=== PATIENT | male | born 1960 | race Caucasian/White ===

== ENCOUNTER 2025-10-23 12:46 | Outpatient (CLI) | payer BC, MEDICARE ==
[2025-10-23 14:37] LABS: #Basophils 0.06 10x3/uL (0.0-0.2); #Eosinophils 0.21 10x3/uL (0.0-0.7); #Monocytes 0.69 10x3/uL (0.11-0.59); #Neutrophils 6.24 10x3/uL (1.40-6.50); %Basophils 0.7 % (0.0-1.0); %Eosinophils 2.4 % (0.0-10.0); %Lymphocytes 16.0 % (21.0-51.0); %Monocytes 8.0 % (0.0-10.0); %Neutrophils 72.6 % (42.0-75.0); Hematocrit 53.6 % (42.0-52.0); Hemoglobin 16.8 g/dL (14.0-18.0); Mean Corpuscular Hemoglobin 25.5 pg (27.0-31.0); Mean Corpuscular Volume 81.5 fL (78.0-98.0); Platelet Count 261 10x3/uL (130-400); Red Blood Cell (RBC) Count 6.58 mill/uL (4.70-6.10); White Blood Cell (WBC) Count 8.61 10x3/uL (4.8-10.8)
[2025-10-23 14:47] LABS: INR-International Normal Ratio 1.0; PTT 35.3 sec (22.9-36.1); Prothrombin Time 13.0 sec (12.0-14.7)
[2025-10-23 15:00] LABS: Anion Gap 13 mmol/L (10-20); BUN (Urea Nitrogen) 20 mg/dL (8.4-25.7); Calc. Creatinine Clearance 0 mL/min (70-130); Calcium 9.5 mg/dL (7.8-10.44); Carbon Dioxide 27 mmol/L (23-31); Chloride 103 mmol/L (98-107); Glucose 96 mg/dL (80-115); Potassium 3.9 mmol/L (3.5-5.1); Sodium 139 mmol/L (136-145)
== END 2025-10-23 12:47 | disposition home or self-care (01) ==
LOC: LABBT 12:46
PROVIDERS: ATTEND Orthopaedic Surgery
DX: Z01.818 Encounter for other preprocedural examination (principal); M47.26 Other spondylosis with radiculopathy, lumbar region; M48.062 Spinal stenosis, lumbar region with neurogenic claudication; M71.38 Other bursal cyst, other site; M51.362 Other intervertebral disc degeneration, lumbar region with discogenic back pain and lower extremity pain; M41.26 Other idiopathic scoliosis, lumbar region
CPT/HCPCS: 71046; 80048; 85025; 85610; 85730; 86850; 86900; 86901